=== PATIENT | female | born 1990 | race Caucasian/White ===

== ENCOUNTER 2019-04-11 20:01 | Emergency (ER) | payer OTHER ==
[~2019-04-11] VITALS: Ht 160 cm; Wt 104.8 kg
== END 2019-04-11 21:44 | disposition home or self-care (01) ==
LOC: ED 20:01
DX: S93.402A Sprain of unspecified ligament of left ankle, initial encounter (principal); S80.812A Abrasion, left lower leg, initial encounter; Z91.048 Other nonmedicinal substance allergy status; W01.198A Fall on same level from slipping, tripping and stumbling with subsequent striking against other object, initial encounter; Y93.11 Activity, swimming; Y92.34 Swimming pool (public) as the place of occurrence of the external cause; Y99.8 Other external cause status